=== PATIENT | male | born 1970 | race Caucasian/White ===

== ENCOUNTER 2024-01-04 21:15 | Emergency (ER) | payer BC, SELFPAY ==
[2024-01-04 21:44] VITALS: BP 121/77; PULSE 85; TEMP 36.9; O2SAT 100; BMI 23.7
--- NOTE | 2024-01-04 22:19 | ED.ALLEREA1 ---
HPI - Allergic Reaction General Chief complaint: Skin/Abscess/Foreign Body Stated complaint: Allergic Reaction Time Seen by Provider: 01/04/24 22:16 Source: patient and family Source comment: patient Mode of arrival: ambulance Limitations: no limitations History of Present Illness HPI narrative: presents with hives. throat little scratchy and mild swelling of his lip. No cough or dyspnea . No fever or joint swelling or nausea Related Data Allergies Allergy/AdvReac Type Severity Reaction Status Date / Time sulfamethoxazole Allergy Intermediate Swelling Verified 01/04/24 22:28 [From Bactrim] of Lip/Tongue/Throat trimethoprim [From Bactrim] Allergy Intermediate Swelling Verified 01/04/24 22:28 of Lip/Tongue/Throat Review of Systems ROS Status of ROS 10 or more systems reviewed and unremarkable except as noted in history and below Exam Constitutional Vital Signs, click to edit/add: Last Vital Signs Temp 98.5 F 01/04/24 21:44 Pulse 85 01/04/24 21:44 Resp 20 01/04/24 21:44 BP 121/77 01/04/24 21:44 Pulse Ox 100 01/04/24 21:44 O2 Del Method Room Air 01/04/24 21:44 Common normals: no apparent distress, average body habitus, oriented x3, no limitations, healthy appearing, alert and well nourished [facility] Common normals: normocephalic and head/scalp atraumatic Other: mild swelling upper lip. oral cavity normal Eye Common normals: EOMs intact bilaterally and conjunctivae normal Respiratory Common normals: normal respiratory effort, no retractions, no use of accessory muscles and clear to auscultation bilaterally Cardio Common normals: regular rate, regular rhythm, S1 normal heart sound and S2 normal heart sound GI Common normals: Normal to inspection, nondistended, normoactive bowel sounds present Extremity Common normals: normal to inspection Other: hives on his legs and arms Neuro Common normals: oriented x3, CN's II-XII intact bilaterally, moves all extremities and no focal motor deficits Psych Appearance: grossly normal Course Vital Signs Vital signs: Vital Signs Temperature 98.5 F 01/04/24 21:44 Pulse Rate 85 01/04/24 21:44 Respiratory Rate 20 01/04/24 21:44 Blood Pressure 121/77 01/04/24 21:44 Pulse Oximetry 100 01/04/24 21:44 Oxygen Delivery Method Room Air 01/04/24 21:44 Temperature 98.5 F 01/04/24 21:44 Pulse Rate 85 01/04/24 21:44 Respiratory Rate 20 01/04/24 21:44 Blood Pressure 121/77 01/04/24 21:44 Pulse Oximetry 100 01/04/24 21:44 Oxygen Delivery Method Room Air 01/04/24 21:44 MDM - Allergic Reaction MDM Narrative Medical decision making narrative: presents with allergic rash. unclear etiology. Treated in the department and rash fading and lip swelling resolved. Discharged home with prednisone and advised to follow up with his doctor early next week Discharge Plan Discharge Stand Alone Forms: Portal Instructions Chief Complaint: Skin/Abscess/Foreign Body Clinical Impression: Urticaria Patient Disposition: Home, Self-Care Print Language: Uzbek Instructions: Urticaria (ED) Additional Instructions: follow up with your doctor early next week Referrals: ALIZA CASSIDY [Primary Care Provider] - 1 week
[2024-01-04 22:33] LABS: Basophils Percent Auto 0.2 % (0.2-2.0); Eosinophils Percent Auto 0.8 % (0.9-7.0); Hematocrit 38.4 % (42.0-54.0); Hemoglobin 13.2 g/dL (14.0-18.0); Immature Granulocytes Abs Auto 0.01 10^3/uL (0.00-0.03); Immature Granulocytes Pct Auto 0.2 % (0.0-0.5); Lymphocytes Absolute Auto 0.7 10^3/uL (1.2-3.8); Lymphocytes Percent Auto 14.3 % (20.5-60.0); Mean Corpuscular HGB Conc 34.4 g/dL (29.9-35.2); Mean Corpuscular Hemoglobin 31.9 pg (25.9-34.0); Mean Corpuscular Volume 92.8 fL (80.0-94.0); Mean Platelet Volume 9.6 fL (9.5-13.5); Monocytes Absolute Auto 0.2 10^3/uL (0.3-0.8); Monocytes Percent Auto 4.2 % (1.7-12.0); Neutrophils Absolute Auto 3.8 10^3/uL (1.4-6.5); Neutrophils Percent Auto 80.3 % (43.0-75.0); Platelet Count 279 10^3/uL (150-450); Red Blood Count 4.14 10^6/uL (4.70-6.10); Red Cell Distribution Width 13.7 % (11.0-15.0); White Blood Count 4.7 10^3/uL (4.0-11.0)
[2024-01-04] MEDS: DIPHENHYDRAMINE HCL 50 MG/ML VIAL IV (22:38)
[2024-01-04] MEDS: METHYLPREDNISOLONE SOD SUCC PF 125 MG/2 ML VIAL IVP (22:38)
[2024-01-04] MEDS: FAMOTIDINE/PF 20 MG/2 ML VIAL IV (22:38)
[2024-01-04 22:42] LABS: Anion Gap 12.2; BUN Creatinine Ratio 13.2; Calcium 8.4 mg/dL (8.5-10.1); Carbon Dioxide 27.6 mmol/L (21.0-32.0); Chloride 104 mmol/L (98-107); Estimated GFR (African America >60 (>=60); Estimated GFR (Non-African Ame 58 (>=60); Glucose 85 mg/dL (74-106); Potassium 3.8 mmol/L (3.5-5.1); Sodium 140 mmol/L (136-145)
[2024-01-05] MEDS: DIPHENHYDRAMINE HCL 25 MG CAPSULE 50 MG PO (00:05)
[2024-01-05] MEDS: PREDNISONE 20 MG TABLET 40 MG PO (00:05)
== END 2024-01-05 00:09 | disposition home or self-care (01) ==
PROVIDERS: Emergency Provider Internal Medicine; PCP Family Medicine
DX: L50.9 Urticaria, unspecified (principal)
CPT/HCPCS: 36415; 80048; 85025; 96374; 96375; 99284; J1200; J2919; J7512